=== PATIENT | male | born 1960 | race Caucasian/White ===

== ENCOUNTER 2021-02-01 15:36 | Emergency (ER) | payer OTHER, SELFPAY ==
[2021-02-01 15:40] VITALS: BP 150/78; PULSE 59; RESP 16; TEMP 36.4; O2SAT 99; BMI 27.3
--- NOTE | 2021-02-01 15:45 | DI.RAD.S_ITS ---
PROCEDURE: XR FINGER LT MIN 2V INDICATIONS: cut tip with garden trimmers TECHNIQUE: AP hand, 2 views of the 2nd finger(s) acquired. COMPARISON: None. FINDINGS: Bones: No fractures or dislocations. No suspicious bony lesions. Soft tissues: Soft tissue laceration/wound involving tip of the 2nd finger is seen. No radiopaque foreign body. No suspicious soft tissue calcifications. IMPRESSION: No acute 2nd finger fracture or dislocation. Laceration involving tip of 2nd finger without radiopaque foreign body. Dictated by: Galdino Martin M.D. on 02/01/2021 at 16:18 Approved by: Galdino Martin M.D. on 02/01/2021 at 16:23
[2021-02-01] MEDS: TET,DIPH,PERTUSS(ACELL),VAC/PF 0.5 ML SYRINGE IM (16:08)
--- NOTE | 2021-02-01 16:17 | PC.NURSE ---
Pt's finger soaked in saline solution
[2021-02-01] MEDS: LIDOCAINE 1% (PF) 6 ML INJ (16:22)
--- NOTE | 2021-02-01 16:24 | ED.WOUNDLAC ---
HPI - Wound/Laceration General Chief Complaint: Wound/Laceration Stated Complaint: CUT LEFT INDEX FINGER OFF Time Seen by Provider: 02/01/21 15:54 Source: patient Mode of arrival: Ambulatory Limitations: no limitations History of Present Illness HPI narrative: Patient is a 60-year-old male who presents with left index finger injury. He was trimming bushes when he stepped the tip of his left index finger. 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 He has some numbness at the tip of his finger. Onset (ago): hour(s) Related Data Allergies Allergy/AdvReac Type Severity Reaction Status Date / Time erythromycin base Allergy Severe Hives Verified 02/01/21 15:42 Penicillins Allergy Severe Hives Verified 02/01/21 15:42 Review of Systems Review of Systems Narrative: GENERAL: Denies chills,fever HEENT: Denies throat pain RESPIRATORY: Denies dyspnea, cough, wheezing CARDIOVASCULAR: Denies chest pain, palpitations GASTROINTESTINAL: Denies nausea, vomiting MUSCULOSKELETAL: Denies extremity pain, injury SKIN: See HPI NEUROLOGIC: Denies weakness, dizziness, headache, numbness 8 point review of systems is negative except for those stated above and HPI Patient History Medical History (Updated 02/01/21 @ 20:03 by Mecca Castaneda DO) Patient denies medical problems Social History Smoking Status: Never smoker Smoking Status: Never smoker Substance Use Type: does not use Exam Initial Vital Signs Initial Vital Signs: Vital Signs Temperature 97.5 F L 02/01/21 15:40 Pulse Rate 59 L 02/01/21 15:40 Respiratory Rate 16 02/01/21 15:40 Blood Pressure 150/78 H 02/01/21 15:40 Pulse Oximetry 99 02/01/21 15:40 GENERAL: Well-appearing, well-nourished and in no acute distress. CARDIOVASCULAR: peripheral pulses in tact, cap refill <2 sec RESPIRATORY: No respiratory distress, speaks in full sentences without difficulty EXTREMITIES: Normal range of motion, no clubbing or edema. Neurovascularly intact NEUROLOGICAL: Cranial nerves II through XII grossly intact. Normal gait and speech. SKIN: Left index finger very distal tip flap injury it does involve the distal and is male. Back/Spine/Pelvis Fingers-Fingertip Front: 1. flap good skin alignment. Decreased sensation at the very tip. Full range of motion Skin Fingers- Fingertip Back: 1. Laceration good alignment Procedures Laceration Repair Laceration 1: Site: hand Side (If applicable): left (Index finger) Size (cm): 2 Description: flap Depth: simple, single layer Pre-repair: wound explored, irrigated extensively and deep structures intact Skin layer closed with: nylon Size (cm): 5-0 Number of sutures: 3 Course Orders Ordered: ED Orders 02/01/21 15:45 XR finger LT min 2V Stat Discontinued Medications Diphtheria/Tetanus/Acell Pertussis (Tet,Diph,Pertuss(Acell),Vac/Pf 0.5 Ml Syringe) 0.5 ml IM .ONCE ONE Stop: 02/01/21 16:04 Last Admin: 02/01/21 16:08 Dose: 0.5 ml Documented by: LAZ Lidocaine HCl (Lidocaine 1% 20 Ml) 10 ml INJ NOW ONE Stop: 02/01/21 16:12 Lidocaine HCl (Lidocaine 1% (Pf)) 6 ml INJ NOW ONE Stop: 02/01/21 16:31 Last Admin: 02/01/21 16:22 Dose: 6 ml Documented by: LAZ Vital Signs Vital signs: Vital Signs - 8 hr 02/01/21 15:40 02/01/21 17:16 Temperature 97.5 F L Pulse Rate 59 L 59 L Respiratory Rate 16 16 Blood Pressure 150/78 H 133/67 Pulse Oximetry 99 99 MDM - Wound/Laceration Imaging Data Extremity x-ray #1: Radiologist's Impression: PROCEDURE: XR FINGER LT MIN 2V INDICATIONS: cut tip with garden trimmers TECHNIQUE: AP hand, 2 views of the 2nd finger(s) acquired. COMPARISON: None. FINDINGS: Bones: No fractures or dislocations. No suspicious bony lesions. Soft tissues: Soft tissue laceration/wound involving tip of the 2nd finger is seen. No radiopaque foreign body. No suspicious soft tissue calcifications. IMPRESSION: No acute 2nd finger fracture or dislocation. Laceration involving tip of 2nd finger without radiopaque foreign body. Dictated by: Galdino Martin M.D. on 02/01/2021 at 16:18 Discharge Plan Departure Patient Disposition: Home Clinical Impression: Laceration Instructions: DI for Laceration Repair Activity Restrictions/Additional Instructions: 1. Have your suture removed in 5-7 days, you may go to walk-in clinic, return to the ER or call your primary care physician. 2. You may wash with soap and water. Keep dressing on overnight in remove it tomorrow No soaking in water including dishes, bathtubs, Lakes, swimming pools etc 3. Signs of infection include, but not limited to, increased redness, increased swelling, increased pain, fever and purulent drainage, if the symptoms should arise, you may need an antibiotic and you should have a reevaluation either by your primary care provider or by the emergency department. You may take ibuprofen 600 mg every 6 hours if needed for [id number] pain Apply antibiotic ointment 1-2 times daily
--- NOTE | 2021-02-01 16:48 | PC.NURSE ---
Lidocaine administered by Dr Castaneda
[2021-02-01 17:16] VITALS: BP 133/67; PULSE 59; RESP 16; O2SAT 99
== END 2021-02-01 17:17 | disposition home or self-care (01) ==
PROVIDERS: Emergency Provider Emergency Medicine
DX: S69.92XA Unspecified injury of left wrist, hand and finger(s), initial encounter (principal); W27.8XXA Contact with other nonpowered hand tool, initial encounter; Z23 Encounter for immunization
CPT/HCPCS: 12001; 73140; 90471; 99283; 99284; 90715